=== PATIENT | male | born 1985 | race African-American/Black ===

== ENCOUNTER 2017-11-12 21:20 | Emergency (ER) | payer SELFPAY ==
[~2017-11-12] VITALS: Ht 185.4 cm; Wt 72.2 kg
[2017-11-12 21:23] VITALS: BP 136/79
== END 2017-11-12 22:11 | disposition left against medical advice (07) ==
LOC: EME 21:20 → EXP 21:20
DX: S00.33XA Contusion of nose, initial encounter (principal); Y04.0XXA Assault by unarmed brawl or fight, initial encounter; J02.9 Acute pharyngitis, unspecified; R49.0 Dysphonia; F17.200 Nicotine dependence, unspecified, uncomplicated; Z53.20 Procedure and treatment not carried out because of patient's decision for unspecified reasons
CPT/HCPCS: 87651 90; 99281; 99283

== ENCOUNTER 2017-11-29 17:52 | Inpatient (IN) | payer OTHER ==
[~2017-11-29] VITALS: Ht 185.4 cm; Wt 77.8 kg
[2017-11-29 19:07] LABS: ALBUMIN 4.3 g/dL (3.2-4.8); CHLORIDE 107 mEq/L (99-109); POTASSIUM 4.1 mEq/L (3.7-5.4); SODIUM 141 mEq/L (136-147)
[2017-11-29 19:08] LABS: HEMATOCRIT 43.2 % (38.0-50.0); HEMOGLOBIN 14.5 G/DL (12.5-16.6); MCH 29.7 PG (29.0-34.0); MCHC 33.6 G/DL (30.0-36.0); MCV 88.5 FL (86-99); PLATELET COUNT 232 K/uL (156-360); RBC DIS.WIDTH-CV 14.6 % (11.8-14.6); RBC DIS.WIDTH-SD 46.7 % (39-53); RED BLOOD COUNT 4.88 M/uL (4.00-5.50); WHITE BLOOD COUNT 6.3 K/uL (4.1-10.2)
[2017-11-29 19:10] LABS: GLUCOSE 85 mg/dL (70-99); TOTAL PROTEIN 7.1 g/dL (6.4-8.3)
[2017-11-29 19:12] LABS: TOTAL BILIRUBIN 0.4 mg/dL (0.0-1.0)
[2017-11-29 19:13] LABS: ALKALINE PHOSPHATASE 100 IU/L (3-129); SERUM ETHYL ALCOHOL 244 mg/dL
[2017-11-29 19:14] LABS: CREATININE 0.9 mg/dL (0.6-1.3); GFR ESTIMATE (CALCULATED) > 59 mL/min/ (58.99-99999)
[2017-11-29 19:15] LABS: AST (GOT) 61 IU/L (2-34); UREA NITROGEN (BUN) 8 mg/dL (9-23)
[2017-11-29 19:16] LABS: ALT (GPT) 51 IU/L (3-49)
[2017-11-29 19:20] LABS: AMPHETAMINE NEGATIVE (500 ng/mL); BARBITURATES NEGATIVE (200 ng/mL); BENZODIAZEPINES NEGATIVE (150 ng/mL); BUPRENORPHINE NEGATIVE (10 ng/mL); COCAINE NEGATIVE (150 ng/mL); METHADONE NEGATIVE (200 ng/mL); METHAMPHETAMINE NEGATIVE (500 ng/mL); OPIATES (MORPHINE) NEGATIVE (100 ng/mL); OXYCODONE NEGATIVE (100 ng/mL); PHENCYCLIDINE NEGATIVE (25 ng/mL); PROPOXYPHENE NEGATIVE (300 ng/mL); THC CANNABINOIDS NEGATIVE (50 ng/mL); TRICYCLIC ANTIDEPRESSANTS NEGATIVE (300 ng/mL)
[2017-11-29] MEDS ORDERED: KEFLEX500 MG PO (21:06)
[2017-11-29] MEDS ORDERED: NORCO 5/3251 TABLET PO (21:11)
[2017-11-30 12:12] VITALS: BP 164/90
[2017-11-30 12:14] VITALS: BP 164/90
[2017-12-01 08:09] VITALS: BP 108/65
[2017-12-01 16:50] VITALS: BP 141/90
[2017-12-02 07:56] VITALS: BP 140/96
[2017-12-02] MEDS ORDERED: RISPERDAL50 MG/2 ML IM (08:49)
[2017-12-02] MEDS ORDERED: IBUPROFEN800 MG PO (08:52)
[2017-12-02] MEDS ORDERED: NORCO 5/3251 TABLET PO (08:52)
[2017-12-02] MEDS ORDERED: CEPHALEXIN500 MG PO (08:52)
== END 2017-12-02 09:58 | disposition home or self-care (01) | DRG 885 ==
LOC: EME 17:52 → 1WEST 11-30 10:46 → EDOF 11-30 10:46 → ENRESERV 11-30 11:08 → 1WEST 11-30 11:55
PROVIDERS: Emergency Medicine Emergency Medical Services
DX: F20.9 Schizophrenia, unspecified (principal); R45.851 Suicidal ideations; F10.229 Alcohol dependence with intoxication, unspecified; S01.512A Laceration without foreign body of oral cavity, initial encounter; S02.2XXA Fracture of nasal bones, initial encounter for closed fracture; S02.650A Fracture of angle of mandible, unspecified side, initial encounter for closed fracture; S02.40DA Maxillary fracture, left side, initial encounter for closed fracture; S02.40CA Maxillary fracture, right side, initial encounter for closed fracture; Y04.0XXA Assault by unarmed brawl or fight, initial encounter; Z62.810 Personal history of physical and sexual abuse in childhood; F43.25 Adjustment disorder with mixed disturbance of emotions and conduct; F17.200 Nicotine dependence, unspecified, uncomplicated; Y90.8 Blood alcohol level of 240 mg/100 ml or more; Z91.14 Patient's other noncompliance with medication regimen; Y93.9 Activity, unspecified; Y92.9 Unspecified place or not applicable
CPT/HCPCS: 70450; 70486; 72125; 80053; 85027; 90837; 99281; 99284; G0480; J1630; J2794; Q0177